=== PATIENT | female | born 1970 | race Caucasian/White ===

== ENCOUNTER 2017-07-18 08:42 | Emergency (ER) | payer BC, OTHER ==
[2017-07-18] MEDS ORDERED: SODIUM CHLORIDE 0.9% 1,000 ML IV STA (09:00)
[2017-07-18] MEDS ORDERED: ONDANSETRON 4 MG/2 ML VIAL IVP STA (09:00)
[2017-07-18] MEDS ORDERED: MORPHINE SULFATE 4 MG/0.8 ML SYRINGE (INJ) IVP STA (09:00)
[2017-07-18] MEDS ORDERED: KETOROLAC 30 MG/ML 1 ML VIAL IVP STA (09:00)
[2017-07-18] MEDS ORDERED: RX INFO: IV CONTRAST WAS GIVEN 1 EACH MISC MISCELLANE PRN (09:00)
[2017-07-18] MEDS ORDERED: ACETAMINOPHEN TAB 500 MG TAB PO STA (09:03)
--- NOTE | 2017-07-18 09:13 | ED ---
Abdominal Pain HPI - General Chief Complaint: Abdominal Pain Stated Complaint: low abd pain Time Seen by Provider: 07/18/17 08:48 Source: patient, RN notes reviewed, old records reviewed Mode of arrival: wheelchair Limitations: no limitations - History of Present Illness Initial Comments: 46-year-old female presents emergency department today chief complaint of lower abdominal pain and fevers for the past 2 days. She reports she has no difficulty with urination. She's had normal bowel habits. She's had some episodes of dry heaving. Surgical history included hemorrhoidectomy many years ago. She reports that she has pain worse with movements. She denies any vaginal discharge. Patient denies any recent fever, chills, shortness of breath , chest pain, back pain, abdominal pain, nausea vomiting, numbness or tingling, dysuria or hematuria, constipation or diarrhea, headaches or visual changes, or any other current symptoms - Related Data Home Medications Medication Instructions Recorded Confirmed Dapagliflozin/Metformin HCl 1 tab PO DAILY 07/18/17 07/18/17 [Xigduo Xr 10 mg-500 mg Tablet] Exenatide Microspheres [Bydureon] 2 mg SQ ESTEVEZ 07/18/17 07/18/17 Omeprazole/Sodium Bicarbonate 2 cap PO DAILY 07/18/17 07/18/17 [Zegerid 20 mg Capsule] metFORMIN HCL 1,000 mg PO BID 07/18/17 07/18/17 Previous Rx's Medication Instructions Recorded Bisacodyl [Dulcolax] 5 mg PO DAILY #12 tablet. 07/18/17 Ciprofloxacin HCl [Cipro] 500 mg PO Q12HR 10 Days tab 07/18/17 HYDROcodone/APAP 5-325MG [[place] 5] 1 each PO Q6HR PRN #12 tab 07/18/17 metroNIDAZOLE [Flagyl] 500 mg PO TID #30 tab 07/18/17 Allergies Allergy/AdvReac Type Severity Reaction Status Date / Time doxycycline Allergy Rash/Hives Verified 07/18/17 10:25 Review of Systems ROS Statement: Those systems with pertinent positive or pertinent negative responses have been documented in the HPI. ROS Other: All systems not noted in ROS Statement are negative. Past Medical History Past Medical History: Diabetes Mellitus, Fibromyalgia Additional Past Medical History / Comment(s): Pain disorder History of Any Multi-Drug Resistant Organisms: None Reported Past Surgical History: No Surgical Hx Reported Past Psychological History: No Psychological Hx Reported Smoking Status: Current every day smoker Past Alcohol Use History: Rare Past Drug Use History: None Reported General Exam - General Exam Comments Initial Comments: 46-year-old female. Alert. No distress. Limitations: no limitations General appearance: alert, in no apparent distress Head exam: Present: atraumatic, normocephalic, normal inspection Eye exam: Present: normal appearance, PERRL, EOMI. Absent: scleral icterus, conjunctival injection, periorbital swelling ENT exam: Present: normal exam, mucous membranes moist Neck exam: Present: normal inspection. Absent: tenderness, meningismus, lymphadenopathy Respiratory exam: Present: normal lung sounds bilaterally. Absent: respiratory distress, wheezes, rales, rhonchi, stridor Cardiovascular Exam: Present: regular rate, normal rhythm, normal heart sounds. Absent: systolic murmur, diastolic murmur, rubs, gallop, clicks GI/Abdominal exam: Present: soft, tenderness (Suprapubic left lower quadrant and right lower quadrant tenderness.), normal bowel sounds. Absent: distended, guarding, rebound, rigid Extremities exam: Present: normal inspection, full ROM, normal capillary refill. Absent: tenderness, pedal edema, joint swelling, calf tenderness Back exam: Present: normal inspection Neurological exam: Present: alert Psychiatric exam: Present: normal affect, normal mood Course Vital Signs 07/18/17 07/18/17 07/18/17 08:43 10:41 12:14 Temperature 99.9 F H 98.6 F 97.7 F Pulse Rate 111 H 86 77 Respiratory 18 18 16 Rate Blood Pressure 139/95 128/69 127/61 O2 Sat by Pulse 98 95 97 Oximetry Medical Decision Making - Medical Decision Making 46-year-old female presents emergency department today chief complaint of lower abdominal pain and fevers for the past 2 days. She reports she has no difficulty with urination. She's had normal bowel habits Patient is tendern is suprapubic and LLQ. IV fluids and labs obtained. CT completed adn shows acute sigmoid divertiucultis. Patient was given fluid resucusitation, and motrin and tyelnol. FEver is gone. Pain is improved. WBC is elevated at 17,000. All other labs are unremarkable. At [facility] time will treat patient with cipro and flagyl, given dose in ED. All questions answered and return parameters discussed. - Lab Data Result diagrams: 07/18/17 09:00 07/18/17 09:00 Lab Results 07/18/17 07/18/17 07/18/17 Range/Units 09:00 09:00 09:00 WBC 17.6 H (3.8-10.6) k/uL RBC 4.93 (3.80-5.40) m/uL Hgb 13.4 (11.4-16.0) gm/dL Hct 41.1 (34.0-46.0) % MCV 83.3 (80.0-100.0) fL MCH 27.2 (25.0-35.0) pg MCHC 32.6 (31.0-37.0) g/dL RDW 12.9 (11.5-15.5) % Plt Count 339 (150-450) k/uL Neutrophils % 87 % Lymphocytes % 9 % Monocytes % 2 % Eosinophils % 1 % Basophils % 0 % Neutrophils # 15.3 H (1.3-7.7) k/uL Lymphocytes # 1.6 (1.0-4.8) k/uL Monocytes # 0.4 (0-1.0) k/uL Eosinophils # 0.2 (0-0.7) k/uL Basophils # 0.0 (0-0.2) k/uL PT (9.0-12.0) sec INR (<1.2) APTT (22.0-30.0) sec Sodium 140 (137-145) mmol/L Potassium 4.4 (3.5-5.1) mmol/L Chloride 104 (98-107) mmol/L Carbon Dioxide 21 L (22-30) mmol/L Anion Gap 15 mmol/L BUN 12 (7-17) mg/dL Creatinine 0.52 (0.52-1.04) mg/dL Est GFR (CKD-EPI)AfAm >90 (>60 ml/min/1.73 sqM) Est GFR (CKD-EPI)NonAf >90 (>60 ml/min/1.73 sqM) Glucose 149 H (74-99) mg/dL Plasma Lactic Acid Barry (0.7-2.0) mmol/L Calcium 9.5 (8.4-10.2) mg/dL Total Bilirubin 0.6 (0.2-1.3) mg/dL AST 40 H (14-36) U/L ALT 28 (9-52) U/L Alkaline Phosphatase 89 (38-126) U/L Total Protein 7.2 (6.3-8.2) g/dL Albumin 4.3 (3.5-5.0) g/dL Amylase 35 (30-110) U/L Lipase 100 (23-300) U/L Urine Color Yellow Urine Appearance Clear (Clear) Urine pH 7.0 (5.0-8.0) Ur Specific [place] 1.028 (1.001-1.035) Urine Protein Trace H (Negative) Urine Glucose (UA) 4+ H (Negative) Urine Ketones 2+ H (Negative) Urine Blood Negative (Negative) Urine Nitrite Negative (Negative) Urine Bilirubin Negative (Negative) Urine Urobilinogen <2.0 (<2.0) mg/dL Ur Leukocyte Esterase Negative (Negative) Urine HCG, Qual (Not Detectd) 07/18/17 07/18/17 07/18/17 Range/Units 09:00 09:00 09:00 WBC (3.8-10.6) k/uL RBC (3.80-5.40) m/uL Hgb (11.4-16.0) gm/dL Hct (34.0-46.0) % MCV (80.0-100.0) fL MCH (25.0-35.0) pg MCHC (31.0-37.0) g/dL RDW (11.5-15.5) % Plt Count (150-450) k/uL Neutrophils % % Lymphocytes % % Monocytes % % Eosinophils % % Basophils % % Neutrophils # (1.3-7.7) k/uL Lymphocytes # (1.0-4.8) k/uL Monocytes # (0-1.0) k/uL Eosinophils # (0-0.7) k/uL Basophils # (0-0.2) k/uL PT 9.5 (9.0-12.0) sec INR 1.0 (<1.2) APTT 22.9 (22.0-30.0) sec Sodium (137-145) mmol/L Potassium (3.5-5.1) mmol/L Chloride (98-107) mmol/L Carbon Dioxide (22-30) mmol/L Anion Gap mmol/L BUN (7-17) mg/dL Creatinine (0.52-1.04) mg/dL Est GFR (CKD-EPI)AfAm (>60 ml/min/1.73 sqM) Est GFR (CKD-EPI)NonAf (>60 ml/min/1.73 sqM) Glucose (74-99) mg/dL Plasma Lactic Acid Barry 0.9 (0.7-2.0) mmol/L Calcium (8.4-10.2) mg/dL Total Bilirubin (0.2-1.3) mg/dL AST (14-36) U/L ALT (9-52) U/L Alkaline Phosphatase (38-126) U/L Total Protein (6.3-8.2) g/dL Albumin (3.5-5.0) g/dL Amylase (30-110) U/L Lipase (23-300) U/L Urine Color Urine Appearance (Clear) Urine pH (5.0-8.0) Ur Specific [place] (1.001-1.035) Urine Protein (Negative) Urine Glucose (UA) (Negative) Urine Ketones (Negative) Urine Blood (Negative) Urine Nitrite (Negative) Urine Bilirubin (Negative) Urine Urobilinogen (<2.0) mg/dL Ur Leukocyte Esterase (Negative) Urine HCG, Qual Not Detected (Not Detectd) - Radiology Data Radiology results: report reviewed CT Shows Acute Sigmoid Diverticulitis. No Complicating Factor. Fat Conaining Umbilical Hernia. Non Obstructing Nephrolithiasis. Disposition Clinical Impression: Diverticulitis Disposition: HOME SELF-CARE Condition: Good Instructions: Diverticulitis (ED), Diverticulitis Diet (ED) Additional Instructions: Patient states all the medications as prescribed. Follow-up with primary care provider. A major remaining hydrated. Return to the emergency department if any alarming signs or symptoms occur. Prescriptions: Bisacodyl [Dulcolax] 5 mg PO DAILY #12 tablet. Ciprofloxacin HCl [Cipro] 500 mg PO Q12HR 10 Days tab HYDROcodone/APAP 5-325MG [[place] 5] 1 each PO Q6HR PRN #12 tab PRN Reason: Pain metroNIDAZOLE [Flagyl] 500 mg PO TID #30 tab Is patient prescribed a controlled substance at d/c from ED?: Yes If prescribed controlled substance>3 days was MAPS reviewed?: No When asked, does pt state using other controlled substances?: No Referrals: Nonstaff,Physician [Primary Care Provider] - 1-2 days Time of Disposition: 12:02
[2017-07-18 09:22] LABS: Basophils % (A) 0 %; Eosinophils # (A) 0.2 k/uL (0-0.7); Eosinophils % (A) 1 %; HCT 41.1 % (34.0-46.0); HGB 13.4 gm/dL (11.4-16.0); Lymphocytes # (A) 1.6 k/uL (1.0-4.8); Lymphocytes % (A) 9 %; MCH 27.2 pg (25.0-35.0); MCHC 32.6 g/dL (31.0-37.0); MCV 83.3 fL (80.0-100.0); Mean Platelet Volume 6.9; Monocytes # (A) 0.4 k/uL (0-1.0); Monocytes % (A) 2 %; Neutrophils # (A) 15.3 k/uL (1.3-7.7); Neutrophils % (A) 87 %; Platelet Count 339 k/uL (150-450); RBC 4.93 m/uL (3.80-5.40); RDW 12.9 % (11.5-15.5); WBC 17.6 k/uL (3.8-10.6)
[2017-07-18 09:29] LABS: Appearance,Urine Clear (Clear); Bilirubin,Urine Negative (Negative); Blood,Urine Negative (Negative); Color,Urine Yellow; Glucose,Urine (UA) 4+ (Negative); Leukocyte Esterase,Urine Negative (Negative); Nitrite,Urine Negative (Negative); Protein,Urine Trace (Negative); Specific Gravity,Urine 1.028 (1.001-1.035); Urobilinogen,Urine <2.0 mg/dL (<2.0)
[2017-07-18 09:31] LABS: Partial Thromboplastin Time 22.9 sec (22.0-30.0); Prothrombin Time 9.5 sec (9.0-12.0)
[2017-07-18 09:35] LABS: Ketones,Urine 2+ (Negative)
[2017-07-18 09:43] LABS: ALT 28 U/L (9-52); AST 40 U/L (14-36); Albumin 4.3 g/dL (3.5-5.0); Alkaline Phosphatase 89 U/L (38-126); Amylase 35 U/L (30-110); Anion Gap 15 mmol/L; Blood Urea Nitrogen 12 mg/dL (7-17); Calcium 9.5 mg/dL (8.4-10.2); Carbon Dioxide 21 mmol/L (22-30); Chloride 104 mmol/L (98-107); Glucose 149 mg/dL (74-99); Lipase 100 U/L (23-300); Potassium 4.4 mmol/L (3.5-5.1); Sodium 140 mmol/L (137-145); Total Bilirubin 0.6 mg/dL (0.2-1.3); Total Protein 7.2 g/dL (6.3-8.2)
--- NOTE | 2017-07-18 11:00 | CT ---
EXAMINATION TYPE: CT abdomen pelvis w con DATE OF EXAM: 07/18/2017 COMPARISON: NONE HISTORY: Abdominal pain CT DLP: 1843 mGycm CONTRAST: CT scan of the abdomen and pelvis is performed without Oral Contrast and with IV Contrast, patient in jected with 100 ml mL of Isovue 300. FINDINGS: LUNG BASES-: No visible nodule. No infiltrate. LIVER/GB: No calcified gallstones. No space occupying hepatic lesion. Biliary tree is of normal ca liber. PANCREAS: No inflammation. No distinct mass. SPLEEN: No splenic enlargement. No lesion seen. ADRENALS: No nodule. No thickening. KIDNEYS/BLADDER: No hydronephrosis. No nephrolithiasis. No distinct renal mass. Urinary bladder g rossly unremarkable. BOWEL: Normal appendix. Wall thickening and surrounding inflammatory change involving the sigmoid col on compatible with acute diverticulitis. No evidence for pneumoperitoneum or abscess at this time. GENITAL ORGANS: No gross abnormality. LYMPH NODES: No greater than 1cm abdominal or pelvic lymph nodes are appreciated. AORTA: No significant abnormality. OSSEOUS STRUCTURES: No significant abnormality is seen. OTHER: No significant additional abnormality is seen. IMPRESSION: 1. Acute sigmoid diverticulitis without complicating factor. 2. Fat-containing umbilical hernia. 3. Nonnonobstructing nephrolithiasis
[2017-07-18] MEDS ORDERED: CIPROFLOXACIN HCL 250 MG TAB PO STA (11:11)
[2017-07-18] MEDS ORDERED: metroNIDAZOLE 500 MG TAB PO STA (11:11)
[2017-07-18 12:15] VITALS: BP 127/61; PULSE 77; RESP 16; TEMP 97.7
== END 2017-07-18 12:15 | disposition home or self-care (01) ==
LOC: EC 08:42
DX: K57.32 Diverticulitis of large intestine without perforation or abscess without bleeding (principal); N20.0 Calculus of kidney; K42.9 Umbilical hernia without obstruction or gangrene; D72.829 Elevated white blood cell count, unspecified; E11.9 Type 2 diabetes mellitus without complications; F17.200 Nicotine dependence, unspecified, uncomplicated; Z79.84 Long term (current) use of oral hypoglycemic drugs; Z79.899 Other long term (current) drug therapy; Z88.1 Allergy status to other antibiotic agents
CPT/HCPCS: 36415; 80053; 82150; 83605; 83690; 85025; 85610; 85730; 81003; 81025; 87040; 74177; 99284; 96374; 96375 ×2; 96361; J2405; J1885; Q9967; J2270

== ENCOUNTER 2019-01-21 12:33 | Emergency (ER) | payer BC, OTHER ==
[2019-01-21 12:38] VITALS: BP 136/91; PULSE 98; RESP 18; TEMP 98
[2019-01-21] MEDS ORDERED: KETOROLAC 30 MG/ML 1 ML VIAL IM STA (12:45)
--- NOTE | 2019-01-21 12:49 | ED ---
Extremity Problem HPI - General Chief complaint: Extremity Problem,Nontraumatic Stated complaint: rt elbow pain Time Seen by Provider: 01/21/19 12:40 Source: patient Mode of arrival: ambulatory Limitations: no limitations - History of Present Illness Initial comments: Patient is 48-year-old female presenting to emergency Department with the chief complaint of right elbow pain. Patient reports the symptoms began yesterday gradually increased in severity. Patient reports she was evaluated at another emergency department and discharged with a sling and no imaging. Patient reports initially she had some tingling on the lateral aspect of the hand and last 2 digits, however this has resolved since. Patient denies any numbness at this time. Patient reports most of the pain is located on the posterior aspect of the proximal forearm and radius distally. Patient also reports she has developed some swelling in the hand but denies any skin discoloration. Patient reports limited range of motion with extension of flexion of the elbow as well as extension of the wrist. Patient reports only alleviating factor is rest. - Related Data Home Medications Medication Instructions Recorded Confirmed Exenatide Microspheres [Bydureon] 2 mg SQ ESTEVEZ 07/18/17 01/21/19 metFORMIN HCL 1,000 mg PO BID 07/18/17 01/21/19 HYDROcodone/APAP 5-325MG [[place] 5] 1 tab PO Q6HR PRN 01/21/19 01/21/19 Allergies Allergy/AdvReac Type Severity Reaction Status Date / Time doxycycline Allergy Rash/Hives Verified 01/21/19 12:52 Review of Systems ROS Statement: Those systems with pertinent positive or pertinent negative responses have been documented in the HPI. ROS Other: All systems not noted in ROS Statement are negative. Past Medical History Past Medical History: Diabetes Mellitus, Fibromyalgia Additional Past Medical History / Comment(s): Pain disorder History of Any Multi-Drug Resistant Organisms: None Reported Past Surgical History: No Surgical Hx Reported Past Psychological History: No Psychological Hx Reported Smoking Status: Current every day smoker Past Alcohol Use History: Rare Past Drug Use History: None Reported General Exam Limitations: no limitations General appearance: alert, in no apparent distress Head exam: Present: atraumatic, normocephalic, normal inspection Eye exam: Present: normal appearance Pupils: Present: normal accommodation ENT exam: Present: normal exam, normal oropharynx, mucous membranes moist, TM's normal bilaterally, normal external ear exam Neck exam: Present: normal inspection, full ROM Respiratory exam: Present: normal lung sounds bilaterally Cardiovascular Exam: Present: regular rate, normal rhythm, normal heart sounds Extremities exam: Present: tenderness (Tenderness along the posterior aspect of the proximal forearm.), normal capillary refill, other (+2 ulnar and radial pulses bilaterally.). Absent: normal inspection (Mild swelling along the right hand), full ROM (Limited range of motion with flexion and extension of the right elbow, and extension of the right wrist.), joint swelling (No swelling of the elbow.) Back exam: Present: normal inspection, full ROM Neurological exam: Present: alert, oriented X3 Psychiatric exam: Present: normal affect, normal mood Skin exam: Present: warm, intact, normal color Course Vital Signs 01/21/19 12:35 Temperature 98.0 F Pulse Rate 98 Respiratory 18 Rate Blood Pressure 136/91 O2 Sat by Pulse 98 Oximetry Medical Decision Making - Medical Decision Making Patient is a 40-year-old female presenting to emergency Department with chief complaint of right elbow pain. This is nontraumatic she does have some swelling in the right hand. Physical examination most of her tenderness appears to be along the posterior aspect of the proximal forearm. X-rays negative for acute fracture or dislocation but it does show spurring. I suspect the patient to have lateral epicondylitis. Patient advised to wear a tight band on the proximal forearm. Patient has a sling. Strict return parameters were thoroughly discussed the patient was understanding and agreeable. Patient advised to alternate between Tylenol and ibuprofen for pain control. Case discussed physician. Disposition Clinical Impression: Lateral epicondylitis (tennis elbow) Disposition: HOME SELF-CARE Condition: Stable Instructions (If sedation given, give patient instructions): Tennis Elbow (ED) Additional Instructions: Alternate between Tylenol and ibuprofen for pain control. Please return to emergency department if symptoms worsen. Is patient prescribed a controlled substance at d/c from ED?: No Referrals: Nonstaff,Physician [Primary Care Provider] - 1-2 days Kumar Cheng DO [Medical Doctor] - 1-2 days Time of Disposition: 14:18
--- NOTE | 2019-01-21 14:09 | XR ---
EXAMINATION TYPE: XR elbow complete RT DATE OF EXAM: 01/21/2019 COMPARISON: NONE HISTORY: 48-year-old female with pain TECHNIQUE: 3 views FINDINGS: No elbow joint effusion. Bony spurring at the lateral epicondyle. No acute fracture, subluxation, or dislocation. IMPRESSION: No acute osseous abnormality seen. Bony spurring at the lateral epicondyle suggests chronic tendinopa thy of the common extensor tendon origin or lateral epicondylitis.
== END 2019-01-21 14:29 | disposition home or self-care (01) ==
LOC: EC 12:33
DX: M77.11 Lateral epicondylitis, right elbow (principal); E11.9 Type 2 diabetes mellitus without complications; F17.200 Nicotine dependence, unspecified, uncomplicated; Z79.84 Long term (current) use of oral hypoglycemic drugs; Z88.1 Allergy status to other antibiotic agents
CPT/HCPCS: 73080; 99283; 96372; J1885